=== PATIENT | female | born 1975 | race Caucasian/White ===

== ENCOUNTER 2023-10-20 08:56 | Emergency (ER) | payer OTHER, SELFPAY ==
[2023-10-20 08:59] VITALS: BP 134/82; PULSE 114; RESP 16; TEMP 37.2; O2SAT 98
--- NOTE | 2023-10-20 09:47 | ED.DENTAL ---
HPI - Dental/Oral General Chief complaint: Dental/Oral Stated complaint: Mouth Abscess Time Seen by Provider: 10/20/23 09:43 Source: patient Mode of arrival: ambulatory Limitations: no limitations History of Present Illness HPI Narrative: This is a 48 year old female that presents to the ER for dental pain. Ongoing over the last week. She has been taking Tylenol and Ibuprofen as needed for pain. She took Tylenol this morning. She presented today as she was concerned she may have an abscess. Denies fevers or drainage. MD Complaint: tooth pain Location: Tooth # (6) Related Data Allergies Allergy/AdvReac Type Severity Reaction Status Date / Time No Known Allergies Allergy Verified 10/20/23 09:48 Review of Systems Review of Systems: CONSTITUTIONAL: Denies fever ENT: Reports dentalgia All systems reviewed & are unremarkable except as noted in HPI and below PMFSH Past Medical History Medical History (Updated 10/20/23 @ 09:53 by Isabell Proctor PA-C) History of hypertension Social History Social History (Updated 10/20/23 @ 09:50 by Isabell Proctor PA-C) Substance use: never Exam Narrative: GENERAL: Well-appearing, well-nourished, and in no acute distress. HEAD: Normocephalic, atraumatic. EYES: EOMI. ENT: Nares clear, no rhinorrhea or epistaxis. Mucous membranes moist. Oropharynx without tonsillar hypertrophy exudate or other lesions. Poor dentition. Tooth # 6. Tender to palpation, without surrounding edema or fluctuance to suggest abscess. No trismus, floor of mouth is soft NECK: Supple. No adenopathy or masses. CHEST: Clear to auscultation. No respiratory distress. No wheezes rales or rhonchi HEART: Regular rate and rhythm. No murmur heard. Normal peripheral pulses. EXTREMITIES: Normal range of motion. No edema. SKIN: Warm, dry, no rash. NEURO: No focal deficits. Alert and oriented x3. PSYCH: Normal mood and affect Course Course Emergency Course: Patient agrees with plan of care Vital Signs Vital signs: Vital Signs Temperature 98.9 F 10/20/23 08:59 Pulse Rate 114 H 10/20/23 08:59 Respiratory Rate 16 10/20/23 08:59 Blood Pressure 134/82 10/20/23 08:59 Pulse Oximetry 98 10/20/23 08:59 Temperature 98.9 F 10/20/23 08:59 Pulse Rate 114 H 10/20/23 08:59 Respiratory Rate 16 10/20/23 08:59 Blood Pressure 134/82 10/20/23 08:59 Pulse Oximetry 98 10/20/23 08:59 MDM - Dental/Oral MDM Narrative Medical decision making narrative: Patient presents to the emergency department for toothache ongoing over the last week. She is afebrile and nontoxic appearing. No evidence for abscess on exam. She will be started on oral antibiotics and was instructed to follow-up with a dentist. She was given warnings to return to the ER Differential Diagnosis Differential diagnosis: Likely toothache and dental abscess Critical Care Time Critical Care Time Critical Care Time: No Discharge Plan Discharge Clinical Impression: Toothache Patient Disposition: Other Condition: Stable Instructions: Antibiotic Form, Toothache (ED) Additional Instructions: Return to the Emergency Department if you experience fever >101, increasing swelling and redness of your tooth, or any other symptoms that are concerning to you Take antibiotic as prescribed. Tylenol or Ibuprofen as needed for pain. Follow up with a dentist Prescriptions: New amoxicillin-pot clavulanate 875-125 mg tablet 1 tablet PO Q12H 7 Days Qty: 14 0RF Follow-up/Referrals: UNKNOWN,DOCTOR [Primary Care Provider] -
[2023-10-20] MEDS: KETOROLAC 30 MG/ML VIAL (*BKC) IM (09:56)
[2023-10-20] MEDS: AMOXICILLIN/CLAVULANATE K 875-125 MG TAB 1 TABLET PO (09:56)
[2023-10-20 10:21] VITALS: PULSE 100
== END 2023-10-20 10:17 | disposition home or self-care (01) ==
LOC: ANHED 10:06
PROVIDERS: Emergency Provider Physician Assistant
DX: K08.89 Other specified disorders of teeth and supporting structures (principal); I10 Essential (primary) hypertension
CPT/HCPCS: 96372; 99283; A9270; J1885